=== PATIENT | male | born 1985 | race Caucasian/White ===

== ENCOUNTER → 2023-07-21 09:02 | Outpatient (REF) | payer BC, SELFPAY ==
[2023-07-21 12:33] LABS: % Basophils 0.2 % (0-2); % Eosinophils 1.9 % (0-6); % Immature Granulocytes 0.2 % (0-0.5); % Lymphocytes 26.9 % (20.5-51.1); % Monocytes 8.6 % (1.7-9.3); % Neutrophils 62.2 % (42.2-75.2); Absolute Eosinophils 0.1 10^3/uL (0-0.7); Absolute Lymphocytes 1.4 10^3/uL (1.2-3.4); Absolute Monocytes 0.4 10^3/uL (0.1-0.6); Absolute Neutrophils 3.2 10^3/uL (1.4-6.5); Hematocrit 46.7 % (39.0-52.0); Hemoglobin 15.9 g/dL (13.0-18.0); Mean Corpuscular Hgb 29.6 pg (27.0-31.0); Mean Corpuscular Volume 86.8 fL (80.0-94.0); Mean Platelet Volume 11.1 fL (7.4-10.4); Nucleated Red Blood Cells % 0 % (-); Platelet Count 197 10^3/uL (130-400); Red Blood Cell Count 5.38 10^6/uL (4.70-6.10); Red Cell Dist. Width 11.7 % (11.5-14.5); White Blood Cell Count 5.1 10^3/uL (4.8-10.8)
[2023-07-21 13:34] LABS: ALT (SGPT) 30 U/L (0-50); AST (SGOT) 25 U/L (17-59); Albumin 4.9 g/dl (3.5-5.0); Alkaline Phosphatase 58 U/L (38-126); Blood Urea Nitrogen 17 mg/dl (9-20); Calcium 9.6 mg/dl (8.4-10.2); Carbon Dioxide 27 mmol/L (22-30); Chloride 101 mmol/L (98-107); GGTP 22 U/L (15-73); Glucose 103 mg/dl (70-99); HDL Cholesterol 79 mg/dl; LDL Cholesterol, Calculated 95 mg/dl; Potassium 4.2 mmol/L (3.5-5.1); Sodium 135 mmol/L (135-145); Total Bilirubin 1.4 mg/dl (0.2-1.3); Total Cholesterol 192 mg/dl (50-199); Total Protein 7.9 g/dl (6.3-8.2); Triglyceride 92 mg/dl (10-149); Very Low Density Lipoprotein 18 mg/dl (0-30); eGFR > 60.00
[2023-07-21 13:56] LABS: TSH Reflex To Free T4 2.15 uIU/ml (0.47-4.68)
== END ==
LOC: HWLAB 09:02
PROVIDERS: ATTENDING PHYSICIAN Physician Assistant Medical
DX: Z00.01 Encounter for general adult medical examination with abnormal findings (principal); F10.90 Alcohol use, unspecified, uncomplicated; Z13.29 Encounter for screening for other suspected endocrine disorder; Z13.220 Encounter for screening for lipoid disorders
CPT/HCPCS: 36415; 80053; 80061; 82977; 84443; 85025

== ENCOUNTER → 2024-07-05 09:00 | Outpatient (REF) | payer BC, SELFPAY ==
[2024-07-05 12:54] LABS: % Basophils 0.5 % (0-2); % Eosinophils 2.4 % (0-6); % Immature Granulocytes 0.2 % (0-0.5); % Lymphocytes 31.7 % (20.5-51.1); % Monocytes 9.6 % (1.7-9.3); % Neutrophils 55.6 % (42.2-75.2); Absolute Eosinophils 0.1 10^3/uL (0-0.7); Absolute Lymphocytes 1.3 10^3/uL (1.2-3.4); Absolute Monocytes 0.4 10^3/uL (0.1-0.6); Absolute Neutrophils 2.3 10^3/uL (1.4-6.5); Hematocrit 46.9 % (39.0-52.0); Hemoglobin 15.8 g/dL (13.0-18.0); Mean Corp Hgb Conc. 33.7 g/dL (33.0-37.0); Mean Corpuscular Hgb 29.4 pg (27.0-31.0); Mean Corpuscular Volume 87.3 fL (80.0-94.0); Mean Platelet Volume 10.8 fL (7.4-10.4); Nucleated Red Blood Cells % 0 % (-); Platelet Count 202 10^3/uL (130-400); Red Blood Cell Count 5.37 10^6/uL (4.70-6.10); Red Cell Dist. Width 11.9 % (11.5-14.5); White Blood Cell Count 4.2 10^3/uL (4.8-10.8)
[2024-07-05 13:39] LABS: ALT (SGPT) 28 U/L (0-50); AST (SGOT) 22 U/L (17-59); Albumin 4.3 g/dl (3.5-5.0); Alkaline Phosphatase 58 U/L (38-126); Blood Urea Nitrogen 11 mg/dl (9-20); Calcium 9.3 mg/dl (8.4-10.2); Carbon Dioxide 34 mmol/L (22-30); Chloride 99 mmol/L (98-107); GGTP 21 U/L (15-73); Glucose 103 mg/dl (70-99); HDL Cholesterol 76 mg/dl; LDL Cholesterol, Calculated 112 mg/dl; Potassium 4.3 mmol/L (3.5-5.1); Sodium 138 mmol/L (135-145); Total Cholesterol 217 mg/dl (50-199); Total Protein 7.7 g/dl (6.3-8.2); Triglyceride 145 mg/dl (10-149); Very Low Density Lipoprotein 29 mg/dl (0-30); eGFR > 60.00
[2024-07-05 14:07] LABS: TSH Reflex To Free T4 2.88 uIU/ml (0.47-4.68)
== END ==
LOC: HWLAB 09:00
PROVIDERS: ATTENDING PHYSICIAN Physician Assistant Medical
DX: Z00.01 Encounter for general adult medical examination with abnormal findings (principal); F10.90 Alcohol use, unspecified, uncomplicated; Z13.29 Encounter for screening for other suspected endocrine disorder; Z13.220 Encounter for screening for lipoid disorders
CPT/HCPCS: 36415; 80053; 80061; 82977; 84443; 85025

== ENCOUNTER → 2024-09-28 08:41 | Outpatient (REF) | payer BC, SELFPAY | LOC: HWRAD 08:41 | PROVIDERS: ATTENDING PHYSICIAN Physician Assistant Medical | DX: M54.16 Radiculopathy, lumbar region (principal) | CPT/HCPCS: 72110 ==